=== PATIENT | female | born 1950 | race Caucasian/White ===

== ENCOUNTER 2017-12-24 16:10 | Emergency (ER) | payer MEDICARE ==
[2017-12-24] MEDS ORDERED: Famotidine 20 MG TAB ONE (17:01)
[2017-12-24] MEDS ORDERED: Dexamethasone 4 MG TAB ONE (17:01)
== END 2017-12-24 20:21 | disposition home or self-care (01) ==
LOC: MADERS 16:10
DX: L50.0 Allergic urticaria (principal); Z79.82 Long term (current) use of aspirin
CPT/HCPCS: 99283; J8540

== ENCOUNTER 2023-07-12 09:45 | Emergency (ER) | payer MEDICARE ==
[2023-07-12] MEDS ORDERED: Ondansetron ODT 4 MG TAB ONE (10:23)
[2023-07-12] MEDS ORDERED: Acetaminophen 500 MG TAB ONE (10:23)
[2023-07-12 11:44] LABS: SARS-CoV-2 NAA Rapid Test DETECTED (NotDetected)
== END 2023-07-12 12:14 | disposition home or self-care (01) ==
LOC: MADERS 09:45
DX: U07.1 COVID-19 (principal); F17.210 Nicotine dependence, cigarettes, uncomplicated
CPT/HCPCS: 71045; 87804 ×2; U0002; Q0162